=== PATIENT | male | born 1995 | race African-American/Black ===

== ENCOUNTER 2016-10-13 10:47 | Emergency (ER) | payer OTHER ==
[~2016-10-13] VITALS: Ht 172.7 cm; Wt 65.8 kg
--- NOTE | ~2016-10-13 | CR72 ---
[facility] A Service of [facility] RADIOLOGY TEXT RESULTS PATIENT: HOWIE EDOUARD LOCATION: [facility] : [birth year] UNIT #: [id number] AGE: [address]: Chiara Coronado MD SEX: M ORDER DR: [id number] [facility] [address] [place], [place] [address] [id number] E MR#: [id number] Acc #: [id number] NAME: HOWIE EDOUARD : 1995 SEX: M STUDY DATE/TIME: 10/13/2016 12:40 UNIT: [facility] ROOM: STUDY DESCRIPTION: CR Chest Single View Portable Attending Physician: Chiara Coronado M.D. Ordering Physician: Chiara Coronado M.D. Primary Care Physician: Kishan Jain M.D. MEDICAL IMAGING REPORT This report is preliminary unless electronic signature is present EXAM Chest x-ray 10/13/2016 HISTORY 21-year-old male in the ED complaining of 1-day history of chest pain. TECHNIQUE Single view chest xray. FINDINGS The examination is negative. The lungs are expanded and clear. No visible pneumothorax, pulmonary infiltrate or pleural effusion. Heart size and pulmonary vascularity are normal. No change since 11/28/2014. IMPRESSION Negative chest. Dictated by... Howie Ward M.D. THIS IS AN ELECTRONICALLY VERIFIED REPORT Howie Ward M.D. at 10/23/2016 12:23 PM MANUELW/mckinley TD: 10/13/2016 16:37 JOB #: [id number] MEDICAL IMAGING REPORT Page 1 of 1 COPY
[2016-10-13 12:33] LABS: BASOPHIL# 0.1 X10e3 (0-0.3); BASOPHIL% 1.3 % (0-2.5); EOSINOPHIL# 0.5 X10e3 (0-0.7); HEMATOCRIT 48.7 % (38.0-50.0); HEMOGLOBIN 16.9 gm/dL (13.0-16.0); LYMPHOCYTE% 14.1 % (17.0-45.0); MEAN CELL VOLUME 88.8 FL (83-96); MEAN CORPUSCULAR HEMOGLOBIN 30.9 PG (28-34); MEAN CORPUSCULAR HGB CONC 34.8 g/dL (30-36); MONOCYTE# 0.7 X10e3 (0-1.0); MONOCYTE% 9.3 % (3.0-12.0); NEUTROPHIL# 4.9 X10e3 (1.5-7.1); NEUTROPHIL% 68.3 % (40-75); PLATELET COUNT 239 X10e3 (140-420); RED BLOOD COUNT 5.49 X10e (3.90-5.60); RED CELL DISTRIBUTION WIDTH 13.3 % (11.0-15.5); WHITE BLOOD COUNT 7.2 X10e3 (4.0-10.5)
[2016-10-13 12:35] LABS: DIFF IND NO
[2016-10-13 13:51] LABS: ALBUMIN SERUM 4.5 g/dL (3.5-5.0); ALKALINE PHOSPHATASE 77 U/L (32-92); ALT (SGPT) 17 U/L (10-40); AST (SGOT) 20 U/L (10-42); BILIRUBIN, DIRECT 0.3 mg/dL (0.0-0.2); BILIRUBIN,INDIRECT 2.1 mg/dL (0.0-0.9); BILIRUBIN,TOTAL 2.4 mg/dL (0.2-2.0); BLOOD UREA NITROGEN 16 mg/dL (9-23); BUN/CREATININE RATIO 14.54; CALCIUM SERUM 9.2 mg/dL (8.4-10.2); CARBON DIOXIDE 27 mmol/L (22-31); CHLORIDE 100 mmol/L (100-111); CREATININE SERUM 1.1 mg/dL (0.6-1.4); GLOM FILT RATE Estimated 111.4 mL/min (>60); GLUCOSE FASTING 71 mg/dL (70-110); MAGNESIUM 2.2 mg/dL (1.6-3.0); POTASSIUM 3.4 mmol/L (3.5-5.1); PROTEIN TOTAL SERUM 7.9 g/dL (6.0-8.3); SODIUM 136 mmol/L (135-145)
[2016-10-13 13:52] LABS: ALCOHOL BLOOD <5 mg/dL (0)
[2016-10-13 14:02] LABS: URINE SOURCE CLEAN CATCH
[2016-10-13 14:14] LABS: URINE APPEARANCE CLEAR; URINE BILIRUBIN NEG (NEG); URINE BLOOD NEG (NEG); URINE COLOR DK YELLOW; URINE GLUCOSE NEG (NEG); URINE KETONE TRACE (NEG); URINE LEUKOCYTE ESTERASE NEG (NEG); URINE NITRATE NEG (NEG); URINE PH 6.5 (5-8); URINE PROTEIN TRACE (NEG); URINE SPECIFIC GRAVITY 1.027 (1.003-1.035)
[2016-10-13 14:16] LABS: AMPHETAMINE POS (NEG); BARBITURATES NEG (NEG); BENZODIAZEPINES NEG (NEG); COCAINE NEG (NEG); CULTURE INDICATED? NO; MARIJUANA POS (NEG); OPIATES NEG (NEG); TRICYCLIC ANTIDEPRESSANTS NEG (NEG); U METHADONE NEG (NEG)
== END 2016-10-13 14:27 | disposition home or self-care (01) ==
LOC: CED 10:47
PROVIDERS: Student in an Organized Health Care Education/Training Program
DX: F15.10 Other stimulant abuse, uncomplicated (principal); F12.10 Cannabis abuse, uncomplicated
CPT/HCPCS: 36415; 71010; 80048; 80076; 80307; 81003; 83735; 85025; 99285; G0480

== ENCOUNTER 2016-11-04 16:17 | Emergency (ER) | payer OTHER ==
[~2016-11-04] VITALS: Ht 172.7 cm; Wt 63.5 kg
--- NOTE | ~2016-11-04 | CR127 ---
[facility] A Service of [facility] RADIOLOGY TEXT RESULTS PATIENT: HOWIE EDOUARD LOCATION: [facility] : [birth year] UNIT #: [id number] AGE: [address]: Bere Crowley SEX: M ORDER DR: [id number] [facility] [address] [place], [place] [address] [id number] E MR#: [id number] Acc #: [id number] NAME: HOWIE EDOUARD : 1995 SEX: M STUDY DATE/TIME: 11/04/2016 17:19 UNIT: [facility] ROOM: STUDY DESCRIPTION: CR Foot Complete Min 3 View Rt Attending Physician: Bere Crowley P.A.-C. Ordering Physician: Bere Crowley P.A.-C. Primary Care Physician: Kishan Jain M.D. MEDICAL IMAGING REPORT This report is preliminary unless electronic signature is present EXAM Right foot, 3 views, 11/04/2016. HISTORY Right foot pain and swelling for 2 days. Hurt foot and ankle while moving furniture 2 days ago. FINDINGS The tarsal, metatarsal, and phalangeal elements are all anatomically normal in position and alignment. There are no articular defects. No fractures or radiopaque foreign bodies in the soft tissues are apparent. IMPRESSION Normal foot. Dictated by... Eran Higginbotham M.D. THIS IS AN ELECTRONICALLY VERIFIED REPORT Eran Higginbotham M.D. at 11/05/2016 8:40 AM KRT/shyla TD: 11/04/2016 21:10 JOB #: [id number] MEDICAL IMAGING REPORT Page 1 of 1 COPY
--- NOTE | ~2016-11-04 | CR21 ---
[facility] A Service of [facility] RADIOLOGY TEXT RESULTS PATIENT: HOWIE EDOUARD LOCATION: [facility] : [birth year] UNIT #: [id number] AGE: [address]: Bere Crowley SEX: M ORDER DR: [id number] [facility] [address] [place], [place] [address] [id number] E MR#: [id number] Acc #: [id number] NAME: HOWIE EDOUARD : 1995 SEX: M STUDY DATE/TIME: 11/04/2016 17:18 UNIT: [facility] ROOM: STUDY DESCRIPTION: CR Ankle Min 3 Views Rt Attending Physician: Bere Crowley P.A.-C. Ordering Physician: Bere Crowley P.A.-C. Primary Care Physician: Kishan Jain M.D. MEDICAL IMAGING REPORT This report is preliminary unless electronic signature is present EXAM Right ankle, 3 views, 11/04/2016. HISTORY Right ankle pain and swelling for 2 days. Hurt ankle while moving furniture 2 days ago. FINDINGS AP, lateral, and oblique projections of the ankle show satisfactory integrity of the joint mortise with a smooth articular surface. There is no identifiable fracture, dislocation, or radiopaque foreign body. IMPRESSION Normal ankle. Dictated by... Eran Higginbotham M.D. THIS IS AN ELECTRONICALLY VERIFIED REPORT Eran Higginbotham M.D. at 11/05/2016 8:40 AM DIMA/shyla TD: 11/04/2016 21:08 JOB #: [id number] MEDICAL IMAGING REPORT Page 1 of 1 COPY
== END 2016-11-04 18:45 | disposition home or self-care (01) ==
LOC: CED 16:17 → CFTX 16:17 → CED 17:34 → CFTX 18:45
DX: S93.611A Sprain of tarsal ligament of right foot, initial encounter (principal); S93.411A Sprain of calcaneofibular ligament of right ankle, initial encounter; W19.XXXA Unspecified fall, initial encounter; Y92.009 Unspecified place in unspecified non-institutional (private) residence as the place of occurrence of the external cause
CPT/HCPCS: 29540; 73610; 73630; 99283